=== PATIENT | female | born 1945 | race Caucasian/White ===

== ENCOUNTER → 2018-01-15 | Outpatient (CLI) | payer BC | LOC: FIMAGING 13:26 | DX: Z12.31 Encounter for screening mammogram for malignant neoplasm of breast (principal); Z85.3 Personal history of malignant neoplasm of breast ==

== ENCOUNTER 2019-02-12 07:57 | Observation (INO) | payer BC ==
[2019-02-12] MEDS ORDERED: FAMOTIDINE 20 MG TAB PO ONE (07:59)
[2019-02-12] MEDS ORDERED: diphenhydrAMINE 25 MG CAP PO ONE ×2 (07:59→08:27)
[2019-02-12] MEDS ORDERED: ASPIRIN EC 325 MG TAB PO ONE ×2 (07:59→08:27)
[2019-02-12] MEDS ORDERED: NS 1,000 ML IV ONE (07:59)
[2019-02-12] MEDS ORDERED: DIAZEPAM 5 MG TAB PO ONE (07:59)
[2019-02-12] MEDS ORDERED: FAMOTIDINE 20 MG TAB ONE (08:27)
[2019-02-12] MEDS ORDERED: DIAZEPAM 5 MG TAB ONE (08:28)
[2019-02-12 08:43] LABS: PLATELET COUNT 259 10^3/uL (150-400)
[2019-02-12 08:52] LABS: INR 0.95 (0.83-1.16); PROTIME(PATIENT) 12.3 SEC (12.0-15.0)
--- NOTE | 2019-02-12 09:53 | PDPROPOC ---
Sedation Plan of Care Sedation Plan of Care: vital signs stable, mental status noted, patient educated of risks, benefits, alternatives, patient can tolerate sedation ASA Classification: ASA 1 Planned drugs: fentanyl, midazolam Mallampati Score: Class 2 Mallampati Reference Image: Patient passed 3-3-2 rule?: Yes
--- NOTE | 2019-02-12 09:53 | PDHPUP ---
History & Physical Update H&P update statement: This history and physical update is based on an assessment of the patient which was completed after admission or registration (within 24 hours), but prior to the surgery/procedure. H&P update: H&P reviewed & patient examined, no change in patient's condition since H&P completed
[2019-02-12] MEDS ORDERED: MIDAZOLAM 2 MG/2 ML VIAL ONE (10:11)
[2019-02-12] MEDS ORDERED: LIDOCAINE 1% 300 MG/30 ML SDV ONE (10:11)
[2019-02-12] MEDS ORDERED: IOPAMIDOL (ISOVUE-370) 150 ML BTL IV ONE (10:11)
[2019-02-12] MEDS ORDERED: fentaNYL 100 MCG/2 ML INJ ONE (10:11)
[2019-02-12] MEDS ORDERED: BIVALIRUDIN 250 MG/5 ML VIAL IV ONE (10:55)
[2019-02-12] MEDS ORDERED: CLOPIDOGREL BISULFATE 75 MG TAB ONE (11:25)
[2019-02-12] MEDS ORDERED: NITROGLYCERIN 0.4 MG BTL SL PRN (11:28)
[2019-02-12] MEDS ORDERED: HYDROCODONE/APAP 5/325 TAB PO PRN (11:28)
[2019-02-12] MEDS ORDERED: ACETAMINOPHEN 325 MG TAB PO PRN (11:28)
[2019-02-12] MEDS ORDERED: TEMAZEPAM 15 MG CAP PO PRN (11:28)
[2019-02-12] MEDS ORDERED: ATROPINE SULFATE 1 MG/10 ML SYR IVP PRN (11:28)
[2019-02-12] MEDS ORDERED: ONDANSETRON 4 MG/2 ML VIAL IVP PRN (11:28)
[2019-02-12] MEDS ORDERED: CLOPIDOGREL BISULFATE 75 MG TAB PO ONE (11:28)
[2019-02-12] MEDS ORDERED: NS 1,000 ML IV SCH (11:30)
[2019-02-12] MEDS ORDERED: DOCUSATE SODIUM 100 MG CAP PO PRN (11:34)
--- NOTE | 2019-02-12 11:40 | PDDXCAT ---
Diagnostic Cath Note - . Date: 02/12/19 Real Estate Attorney: Herbert Indication: other (CAD with prior CABG, throat/jaw discomfort, and abnormal nuclear stress test.) - Procedure Access: right groin Procedure: left heart catheterization, coronary angiography, left ventriculogram , vein graft injection, CARMEN injection, other (PCI of sequential SVG to PDA and PLB) - Materials Left Heart Cath size: 6F Left Heart Cath materials: standard multipack (JL4, JR4, pigtail), JUSTINE - Findings-Left Heart Catheterization LM: Normal. LAD: Ostial 100%. LCX: Proximal 90%. RCA: Proximal 100%. Ramus: Ostial 100%. rSVG: Sequential SVG to PDA and PLB has a 90% focal stenosis in its proximal portion. CARMEN: Atretic with no supply to the LAD. EDP: 24 mmHg LVEF: 40% Wall motion: Inferior hypokinesis to akinesis. Complications: BNone Estimated blood loss: <50ml Closure method: Angioseal Assessment: 1) Coronary artery disease as described above. 2) Ischemic cardiomyopathy with moderately reduced left ventricular systolic function. 3) Successful PCI of the sequential SVG to PDA and PLB using a single drug-coated stent. Intervention: Based on the patient's clinical history and diagnostic angiography, the decision was made to perform PCI of the sequential SVG to PDA and PLB. The patient received intravenous Angiomax. A 6 Persian Multipurpose A1 guiding catheter was advanced to the ostium of the SVG. An Intuition guidewire was advanced to the distal portion of the SVG. Predilatation of the target lesion was performed using a 2.5 x 12 mm Emerge balloon. A 3.5 x 16 mm Synergy stent was positioned and deployed at high pressure. Final angiograms demonstrated 0% residual stenosis and AME-III flow.
[2019-02-13 07:30] VITALS: BP 138/83
[2019-02-13] MEDS ORDERED: CHOLECALCIFEROL VIT D3 1,000 UNITS TAB PO SCH (09:00)
[2019-02-13] MEDS ORDERED: CLOPIDOGREL BISULFATE 75 MG TAB PO SCH (09:00)
[2019-02-13] MEDS ORDERED: LISINOPRIL 20 MG TAB PO SCH (09:00)
[2019-02-13] MEDS ORDERED: ASPIRIN EC 325 MG TAB PO SCH (09:00)
--- NOTE | 2019-02-13 11:24 | GDS ---
[f rep st] DISCHARGE SUMMARY DISCHARGE DIAGNOSES: 1. Unstable angina, status post percutaneous transluminal coronary angioplasty and stenting to seque ntial saphenous vein graft to posterior descending artery and posterior left ventricular for 90% foca l stenosis. 2. New unstable angina with throat and jaw pain. 3. History of coronary artery disease, status post 5-vessel coronary artery bypass grafting in 2000. 4. Dyslipidemia. 5. Hypertension. 6. Type 2 diabetes mellitus. 7. Obesity with a body mass index of 33. PROCEDURES: 02/12/2019, left heart catheterization with percutaneous intervention to saphenous vein graft to posterior descending artery and posterior left ventricular with a 3.5 x 16 mm Synergy stent. BRIEF HISTORY: Please see dictated H and P by Dr. Godinez for complete details. In brief, the rachelle ent is a 73-year-old female with hypertension, dyslipidemia, type 2 diabetes mellitus, obesity, and C AD. She presented with new onset of throat and jaw pain on exertion while walking in [place]. Her nu clear stress test showed a partially fixed and partially reversible defect. She proceeded to left he art catheterization and was found to have severe disease. She had 100% ostial LAD occlusion with an atretic ACRMEN to LAD, 90% proximal left circumflex lesion, 100% RCA lesion, 100% ostial ramus lesion. LVEDP was 24, and LVEF was 40%. She proceeded to PCI to the SVG to PDA and PLV. On day of discharg e, patient denies any chest pain, groin pain, dyspnea, PND, orthopnea, or peripheral edema. PHYSICAL EXAM: VITAL SIGNS: On day of discharge, blood pressure 138/83, heart rate 61, respirations 14, O2 saturation 97% on room air, temp of 97.7 degrees Fahrenheit. GENERAL: She is a very pleasan t female in no apparent distress. HEAD: Normocephalic, atraumatic. EYES: Without scleral icterus. HEART: Regular rate and rhythm. LUNGS: Clear. EXTREMITIES: Right groin site without ecchymosis , bruit, or edema. She has 2+ PT and DP pulses bilaterally. NT proBNP is 2540 on day of discharge. Triglycerides 263, total cholesterol 181, LDL direct of 89, L DL calculated is 81, HDL of 47. Telemetry reveals no arrhythmias. A 12-lead ECG shows sinus rhythm with inferior ST elevations with diffuse T-wave inversions. RESULTS PENDING: None. DIET: Cardiac. ACTIVITY: Groin precautions were reviewed. DISCHARGE MEDICATIONS: Please see med reconciliation. She may continue her lisinopril, lovastatin, Colace, and vitamin D3. Her new medications are aspirin at 325 mg p.o. daily and clopidogrel 75 mg p .o. daily. DISCHARGE INSTRUCTIONS: 1. Follow up with Dr. Godinez as scheduled. 2. Follow up with cardiac rehab in the outpatient setting. 3. Groin precautions as reviewed. /[id number]/MODL
[2019-02-13] MEDS ORDERED: PRAVASTATIN SODIUM 40 MG TAB PO SCH (18:00)
--- NOTE | 2019-02-18 08:43 | CPEKG ---
Test Reason : OPEN Blood Pressure : / mmHG Vent. Rate : 080 BPM Atrial Rate : 079 BPM P-R Int : 203 ms QRS Dur : 100 ms QT Int : 408 ms P-R-T Axes : 041 090 164 degrees QTc Int : 471 ms Sinus rhythm Inferior infarct, acute (RCA) Anterior infarct, old Probable RV involvement, suggest recording right precordial leads Confirmed by John Woodward ([id number]) on 02/18/2019 8:43:21 AM Referred By: Cornelio Godinez Confirmed By:John Woodward
--- NOTE | 2019-02-18 08:48 | CPEKG ---
Test Reason : OPEN Blood Pressure : / mmHG Vent. Rate : 063 BPM Atrial Rate : 064 BPM P-R Int : 224 ms QRS Dur : 094 ms QT Int : 463 ms P-R-T Axes : 084 090 156 degrees QTc Int : 475 ms Sinus rhythm Prolonged MS interval Anterior infarct, old Repol abnrm suggests ischemia, lateral leads ST elevation, consider inferior injury Confirmed by John Woodward ([id number]) on 02/18/2019 8:47:45 AM Referred By: Cornelio Godinez Confirmed By:John Woodward
== END 2019-02-13 10:29 | disposition home or self-care (01) ==
LOC: FCATH 07:57 → F2W 11:29
PROVIDERS: ADMIT Internal Medicine Interventional Cardiology; ATTEND Internal Medicine Cardiovascular Disease
PROC: 4A023N7 Measurement of Cardiac Sampling and Pressure, Left Heart, Percutaneous Approach (ICD-10-PCS; principal; 2019-02-12)
PROC: B2151ZZ Fluoroscopy of Left Heart using Low Osmolar Contrast (ICD-10-PCS; principal; 2019-02-12)
PROC: 027034Z Dilation of Coronary Artery, One Artery with Drug-eluting Intraluminal Device, Percutaneous Approach (ICD-10-PCS; principal; 2019-02-12)
PROC: B2181ZZ Fluoroscopy of Left Internal Mammary Bypass Graft using Low Osmolar Contrast (ICD-10-PCS; principal; 2019-02-12)
PROC: B2111ZZ Fluoroscopy of Multiple Coronary Arteries using Low Osmolar Contrast (ICD-10-PCS; principal; 2019-02-12)
PROC: B21F1ZZ Fluoroscopy of Other Bypass Graft using Low Osmolar Contrast (ICD-10-PCS; principal; 2019-02-12)
DX: I25.119 Atherosclerotic heart disease of native coronary artery with unspecified angina pectoris (principal); I25.5 Ischemic cardiomyopathy; E78.5 Hyperlipidemia, unspecified; I10 Essential (primary) hypertension; E11.9 Type 2 diabetes mellitus without complications; E66.9 Obesity, unspecified; Z68.33 Body mass index [BMI] 33.0-33.9, adult; Z95.1 Presence of aortocoronary bypass graft
CPT/HCPCS: 92937; 93459; C1725; C1769; C1887; G0378; C1760; C1874; C9604; J0583; J1644; J2250; J3010; Q9967